=== PATIENT | female | born 1935 | race Caucasian/White ===

== ENCOUNTER → 2016-08-17 | Outpatient (REF) | payer MEDICARE, OTHER | LOC: M LAB REF 16:56 | PROVIDERS: ATTEND Physician Assistant | DX: N39.0 Urinary tract infection, site not specified (principal) ==

== ENCOUNTER → 2016-11-07 | Outpatient (REF) | payer MEDICARE, OTHER | LOC: M LAB REF 10:38 | PROVIDERS: ATTEND Physician Assistant | DX: R30.0 Dysuria (principal) ==

== ENCOUNTER → 2017-04-15 | Outpatient (REF) | payer MEDICARE, OTHER | LOC: M LAB REF 17:59 | DX: R30.0 Dysuria (principal) | CPT/HCPCS: 87186 ==

== ENCOUNTER → 2017-06-25 | Outpatient (CLI) | payer MEDICARE, OTHER | LOC: M WUC 10:02 | DX: R07.9 Chest pain, unspecified (principal) | CPT/HCPCS: 71046 ==

== ENCOUNTER → 2017-10-07 | Outpatient (REF) | payer MEDICARE, OTHER | LOC: M LAB REF 10:55 | DX: R30.0 Dysuria (principal) | CPT/HCPCS: 87086 ==

== ENCOUNTER → 2017-12-28 | Outpatient (REF) | payer MEDICARE, OTHER | LOC: M LAB REF 11:54 | DX: N39.0 Urinary tract infection, site not specified (principal) | CPT/HCPCS: 87186 ==

== ENCOUNTER → 2018-10-18 | Outpatient (CLI) | payer MEDICARE, OTHER ==
--- NOTE | 2018-10-18 09:04 | REPMRS ---
Patient History The patient states she has not had a clinical breast exam in over a year. Patient is postmenopausal. No known family history of cancer. Digital Woman Screen Mammo: October 18, 2018 - Exam #: [id number] Bilateral CC and MLO view(s) were taken. Technologist: Smita Simmons, Technologist Prior study comparison: September 11, 2014, digital woman screen mammo performed at [facility]. FINDINGS: There are scattered fibroglandular densities. There is a moderate amount of residual fibroglandular tissue which is fairly symmetric. There is no interval development of dominant mass, architectural distortion, or grouped microcalcification typical of malignancy. There has been no change in the appearance of the mammogram from the prior studies. 3-D tomosynthesis shows no additional findings. Assessment: BI-RADS/ACR category 1 mammogram. Negative Mammogram. Recommendation Routine screening mammogram of both breasts in 1 year (for women over age 40). This patient's Lifetime Breast Cancer RIsk is estimated at 0.5 %. This mammogram was interpreted with the aid of an FDA-approved computer-aided dectection system. Electronically Signed By: Landon Glynn MD 10/18/18 0904
--- NOTE | 2018-10-22 10:37 | DEXA ---
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 The density of the spine has increased 5.6% since the initial exam on 02/03/2000. The spine density has decreased 6.3% since the most recent exam on 07/17/2013. The density of the left hip has increased 0.9% since the initial exam on 01/03/1999. The density of the left hip has decreased 8.1% since the most recent exam on 07/17/2013. The density of the right hip has decreased 6.9% since the initial exam on 05/18/2006. The density of the right hip has decreased 11.9% since the most recent exam on 07/17/2013. FOLLOW-UP: Recommendation for the next bone density exam: 2 years. KRISTEN
== END ==
LOC: M WHC 07:49
PROVIDERS: ATTEND Internal Medicine
DX: Z12.31 Encounter for screening mammogram for malignant neoplasm of breast (principal); Z78.0 Asymptomatic menopausal state; M81.0 Age-related osteoporosis without current pathological fracture

== ENCOUNTER → 2019-07-11 | Outpatient (CLI) | payer MEDICARE, OTHER ==
--- NOTE | 2019-07-11 10:22 | REP ---
ABDOMINAL SERIES: Supine and erect views of the abdomen demonstrate no evidence of free intraperitoneal air. The stomach is not dilated. There is mild scattered air and fecal material in the distal colon. There are mildly dilated small bowel loops in the mid abdomen bilaterally. Phleboliths are seen in the inferior left pelvis. There are mild degenerative changes of the spine. An accompanying view of the chest demonstrates mild bibasilar fibrotic change which is stable with no acute infiltrate. The heart and mediastinum are unremarkable and unchanged. IMPRESSION: No compelling evidence for obstruction. Mildly dilated small bowel loops in the mid abdomen bilaterally may represent a mild ileus. Electronically Signed by Yonathan Carrillo MD 07/11/2019 11:08 A
[2019-07-11 11:42] LABS: BASO % 0.2 % (0.0-1.0); EOS # 0.1 10^3/uL (0.0-0.5); EOS % 0.8 % (0.0-3.0); HEMOGLOBIN 11.9 g/dl (12.0-15.5); LYMPH # 1.2 10^3/uL (1.5-5.0); LYMPH % 19.7 % (24.0-44.0); MEAN CORPUSCULAR HEMOGLOBIN 32.9 pg (27.0-33.0); MEAN CORPUSCULAR HGB CONC 33.1 g/dl (32.0-36.5); MEAN CORPUSCULAR VOLUME 99.4 fl (80.0-96.0); MONO # 0.5 10^3/uL (0.0-0.8); MONO % 8.2 % (0.0-5.0); NEUTROPHILS # 4.4 10^3/uL (1.5-8.5); NEUTROPHILS % 70.8 % (36.0-66.0); PLATELET COUNT, AUTOMATED 156 10^3/uL (150-450); RED BLOOD COUNT 3.62 10^6/uL (4.00-5.40); WHITE BLOOD COUNT 6.2 10^3/uL (4.0-10.0)
[2019-07-11 12:48] LABS: ALBUMIN 2.9 GM/DL (3.2-5.2); BILIRUBIN,TOTAL 0.7 MG/DL (0.2-1.0); CALCIUM LEVEL 8.8 MG/DL (8.8-10.2); CREATININE FOR GFR 0.98 MG/DL (0.55-1.30); GLOMERULAR FILTRATION RATE 57.7 (>32); POTASSIUM SERUM 3.5 MEQ/L (3.5-5.1); TOTAL PROTEIN 8.4 GM/DL (6.4-8.2)
== END ==
LOC: M WUC 09:08
PROVIDERS: ATTEND Nurse Practitioner Family
DX: R10.84 Generalized abdominal pain (principal); R11.2 Nausea with vomiting, unspecified; R19.7 Diarrhea, unspecified

== ENCOUNTER → 2020-11-08 | Outpatient (CLI) | payer MEDICARE, OTHER ==
--- NOTE | 2020-11-08 09:25 | DEXAMM ---
INDICATION: AGE REL OSTEOPOROSIS W/O FX/M81.0. COMPARISON: 10/18/2018 as well as other prior exams. TECHNIQUE: Bone density was measured using dual-energy x-ray absorptiometry (DEXA). FINDINGS: AP SPINE L1-L4 BMD 0.828 g/cm2 Young Adult T-Score -3.0 Age Matched Z-Score -1.0. LT FEMUR, TOTAL BMD 0.662 g/cm2 Young Adult T-Score -2.7 Age Matched Z-Score -0.5. LT NECK BMD 0.602 g/cm2 Young Adult T-Score -3.1 Age Matched Z-Score -0.8. RT FEMUR, TOTAL BMD 0.664 g/cm2 Young Adult T-Score -2.7 Age Matched Z-Score -0.4. RT NECK BMD 0.612 g/cm2 Young Adult T-Score -3.1 Age Matched Z-Score -0.7. IMPRESSION: There is osteoporosis of the spine. There is osteoporosis of the left hip. There is osteoporosis of the right hip. The density of the spine has increased 5.2% since the initial exam on 02/03/2000. The density of the spine decreased 0.4% since most recent exam on 10/18/2018. The density of the left hip has decreased 4.7% since initial exam on 01/03/1999. The density of the left hip has decreased 5.6% since most recent exam on 10/18/2018. The density of the right hip has decreased 11.3% since the initial exam on 05/18/2006. The density of the right hip has decreased 4.7% since the most recent exam on 10/18/2018. FOLLOW-UP: Recommendation for the next bone density exam: 2 years. <Electronically signed by Yonathan Carrillo > 11/08/20 0921
--- NOTE | 2020-11-08 11:29 | REPMRS ---
Patient History The patient states she has not had a clinical breast exam in over a year. Patient is postmenopausal. No known family history of cancer. No Hormone Replacement Therapy Patient states no breast complaints today. Patient has signed MRS History Sheet. Digital Woman Screen Mammo: November 08, 2020 - Exam #: [id number] Bilateral CC and MLO view(s) were taken. Technologist: Caron Desai, Elevator Erector Prior study comparison: October 18, 2018, bilateral digital woman screen mammo performed at [facility]. September 11, 2014, digital woman screen mammo performed at [facility]. FINDINGS: The breast tissue is heterogeneously dense. This may lower the sensitivity of mammography. Screening. Digital screening (2D) mammography was performed bilaterally in the CC and MLO projections. Additionally, breast tomosynthesis (3D mammography) was performed bilaterally in the CC and MLO projections. Todays exam was compared to the prior exam/exams. By history, the patient has no complaints of a palpable breast abnormality or other significant breast complaints. The breasts are unchanged in size and shape. There are no stacey-soft tissue densities or spiculated masses. There is no internal architectural distortion. Once again, stable benign appearing calcifications are seen.There are no suspicious stacey-calcific clusters. Skin thickening or nipple retraction is not present. The Volpara volumetric breast density category is C, the breasts are heterogenously dense which may obscure small masses. IMPRESSION: BI-RADS Category 2- Benign Findings. There is no evidence of malignant alteration of the breasts. Followup examination recommended in one year. This mammogram was read with the assistance of [facility] [employer],an FDA approved computer aided detection system for mammography. The lifetime Tyrer-Cuzick score is NA due to the patient's age. Negative x-ray reports should not delay surgical consultation if a dominant or clinically suspicious mass is present. Not all breast cancers can be identified by mammography. Therefore, we recommend that you continue to perform regular breast self-examination and physical examination and then promptly contact your physician of any concerns or changes. Adenosis and dense breasts may obscure an underlying neoplasm. No significant changes when compared with prior studies. Assessment: BI-RADS/ACR category 2 mammogram. Benign Findings. Recommendation Routine screening mammogram of both breasts in 1 year. Electronically Signed By: Clay Ray MD 11/08/20 6599
== END ==
LOC: M WHC 08:15
PROVIDERS: ATTEND Internal Medicine
DX: Z12.31 Encounter for screening mammogram for malignant neoplasm of breast (principal); M81.0 Age-related osteoporosis without current pathological fracture

== ENCOUNTER → 2021-09-05 | Outpatient (CLI) | payer MEDICARE, OTHER | LOC: M WUC 09:26 | PROVIDERS: ATTEND Internal Medicine | DX: I50.9 Heart failure, unspecified (principal); J91.8 Pleural effusion in other conditions classified elsewhere; R06.02 Shortness of breath ==

== ENCOUNTER → 2022-03-02 | Outpatient (CLI) | payer MEDICARE, OTHER ==
[2022-03-02 12:59] LABS: CALCIUM LEVEL 9.4 MG/DL (8.3-10.6); CREATININE FOR GFR 1.14 MG/DL (0.55-1.30); GLOMERULAR FILTRATION RATE 48.1 (>32); POTASSIUM SERUM 4.8 MMOL/L (3.5-5.1)
== END ==
LOC: M LAB 11:32
PROVIDERS: ATTEND Physician Assistant
DX: I50.31 Acute diastolic (congestive) heart failure (principal)

== ENCOUNTER → 2022-03-31 | Outpatient (CLI) | payer MEDICARE, OTHER ==
[2022-03-31 16:33] LABS: THYROID STIMULATING HORMONE 8.971 uIU/ML (0.55-4.78)
[2022-03-31 16:35] LABS: HEMATOCRIT 34.6 % (36.0-47.0); HEMOGLOBIN 11.4 g/dl (12.0-15.5); MEAN CORPUSCULAR HEMOGLOBIN 32.6 pg (27.0-33.0); MEAN CORPUSCULAR HGB CONC 32.9 g/dl (32.0-36.5); MEAN CORPUSCULAR VOLUME 98.9 fl (80.0-96.0); PLATELET COUNT, AUTOMATED 211 10^3/uL (150-450); WHITE BLOOD COUNT 5.3 10^3/uL (4.0-10.0)
[2022-03-31 16:58] LABS: ALBUMIN 3.1 G/DL (3.2-5.2); BILIRUBIN,TOTAL 0.6 MG/DL (0.3-1.2); CALCIUM LEVEL 10.2 MG/DL (8.3-10.6); CHOLESTEROL RISK RATIO 2.95 (<5); CREATININE FOR GFR 1.5 MG/DL (0.55-1.30); GLOMERULAR FILTRATION RATE 35.1 (>32); HDL CHOLESTEROL 38.3 MG/DL (>40); LDL CHOLESTEROL 45.1 MG/DL (<100); POTASSIUM SERUM 4.1 MMOL/L (3.5-5.1); TOTAL PROTEIN 8.9 G/DL (5.7-8.2)
== END ==
LOC: M WUC 10:56
PROVIDERS: ATTEND Internal Medicine
DX: E78.5 Hyperlipidemia, unspecified (principal); E03.9 Hypothyroidism, unspecified; I50.9 Heart failure, unspecified

== ENCOUNTER → 2022-05-25 | Outpatient (CLI) | payer MEDICARE, OTHER | LOC: M CARPUL 08:20 | PROVIDERS: ATTEND Physician Assistant | DX: R06.02 Shortness of breath (principal); I50.31 Acute diastolic (congestive) heart failure; I08.3 Combined rheumatic disorders of mitral, aortic and tricuspid valves; I27.20 Pulmonary hypertension, unspecified ==

== ENCOUNTER → 2022-09-22 | Outpatient (CLI) | payer MEDICARE, OTHER ==
[2022-09-22 16:32] LABS: HEMATOCRIT 30.4 % (36.0-47.0); HEMOGLOBIN 9.7 g/dl (12.0-15.5); MEAN CORPUSCULAR HEMOGLOBIN 32.1 pg (27.0-33.0); MEAN CORPUSCULAR HGB CONC 31.9 g/dl (32.0-36.5); MEAN CORPUSCULAR VOLUME 100.7 fl (80.0-96.0); PLATELET COUNT, AUTOMATED 293 10^3/uL (150-450); RED BLOOD COUNT 3.02 10^6/uL (4.00-5.40); WHITE BLOOD COUNT 5.1 10^3/uL (4.0-10.0)
[2022-09-22 17:06] LABS: CREATININE FOR GFR 1.01 MG/DL (0.55-1.30); GLOMERULAR FILTRATION RATE 55.2 (>32); POTASSIUM SERUM 3.6 MMOL/L (3.5-5.1)
== END ==
LOC: M WUC 11:47
PROVIDERS: ATTEND Internal Medicine Cardiovascular Disease
DX: I48.0 Paroxysmal atrial fibrillation (principal); D50.9 Iron deficiency anemia, unspecified; I11.0 Hypertensive heart disease with heart failure

== ENCOUNTER → 2022-09-27 | Outpatient (CLI) | payer MEDICARE, OTHER ==
[2022-09-27 12:19] LABS: HEMATOCRIT 30.4 % (36.0-47.0); HEMOGLOBIN 9.8 g/dl (12.0-15.5); MEAN CORPUSCULAR HEMOGLOBIN 32.5 pg (27.0-33.0); MEAN CORPUSCULAR HGB CONC 32.2 g/dl (32.0-36.5); MEAN CORPUSCULAR VOLUME 100.7 fl (80.0-96.0); PLATELET COUNT, AUTOMATED 277 10^3/uL (150-450); RED BLOOD COUNT 3.02 10^6/uL (4.00-5.40); WHITE BLOOD COUNT 5.6 10^3/uL (4.0-10.0)
[2022-09-27 12:41] LABS: ALBUMIN 2.7 G/DL (3.2-5.2); BILIRUBIN,TOTAL 0.5 MG/DL (0.3-1.2); CALCIUM LEVEL 9.6 MG/DL (8.3-10.6); CREATININE FOR GFR 1.08 MG/DL (0.55-1.30); GLOMERULAR FILTRATION RATE 51.1 (>32); POTASSIUM SERUM 4.5 MMOL/L (3.5-5.1); TOTAL PROTEIN 9.1 G/DL (5.7-8.2)
[2022-09-27 12:42] LABS: THYROID STIMULATING HORMONE 12.63 uIU/ML (0.55-4.78)
== END ==
LOC: M WUC 10:13
PROVIDERS: ATTEND Internal Medicine
DX: E78.5 Hyperlipidemia, unspecified (principal); E03.9 Hypothyroidism, unspecified; I48.91 Unspecified atrial fibrillation; I50.9 Heart failure, unspecified

== ENCOUNTER 2022-11-02 06:44 | Observation (INO) | payer MEDICARE, OTHER ==
[~2022-11-02] VITALS: Ht 157.5 cm; Wt 52.5 kg
[2022-11-02] MEDS ORDERED: ELIQ2.5T PO (07:49)
[2022-11-02] MEDS ORDERED: SYNT88TA2 PO (07:50)
[2022-11-02] MEDS ORDERED: LIPI20TA PO (07:50)
[2022-11-02 07:58] LABS: BASO % 0.5 % (0.0-1.0); EOS # 0.1 10^3/uL (0.0-0.5); EOS % 3.3 % (0.0-3.0); HEMATOCRIT 35.2 % (36.0-47.0); HEMOGLOBIN 11.5 g/dl (12.0-15.5); LYMPH # 1.2 10^3/uL (1.5-5.0); LYMPH % 28.3 % (24.0-44.0); MEAN CORPUSCULAR HEMOGLOBIN 32.9 pg (27.0-33.0); MEAN CORPUSCULAR HGB CONC 32.7 g/dl (32.0-36.5); MEAN CORPUSCULAR VOLUME 100.6 fl (80.0-96.0); MONO # 0.5 10^3/uL (0.0-0.8); MONO % 12.2 % (2.0-8.0); NEUTROPHILS # 2.4 10^3/uL (1.5-8.5); NEUTROPHILS % 55.2 % (36.0-66.0); PLATELET COUNT, AUTOMATED 179 10^3/uL (150-450); WHITE BLOOD COUNT 4.3 10^3/uL (4.0-10.0)
[2022-11-02] MEDS ORDERED: TORS20TA2 PO ×2 (07:58→08:13)
[2022-11-02] MEDS ORDERED: TOPR25TA PO (07:58)
[2022-11-02] MEDS ORDERED: POTA-164 PO (07:58)
[2022-11-02] MEDS ORDERED: PANT20TA6 PO (08:04)
[2022-11-02 08:05] LABS: CK-MB VALUE MASS 1.6 NG/ML (<3.6)
[2022-11-02 08:07] LABS: BLOOD UREA NITROGEN 48 MG/DL (9-23); CALCIUM LEVEL 12.7 MG/DL (8.3-10.6); CARBON DIOXIDE LEVEL 30 MMOL/L (20-31); CHLORIDE LEVEL 99 MMOL/L (98-107); CREATININE FOR GFR 0.89 MG/DL (0.55-1.30); GLOMERULAR FILTRATION RATE > 60.0 (>32); GLUCOSE, FASTING 92 MG/DL (74-106); MAGNESIUM LEVEL 2.2 MG/DL (1.8-2.4); POTASSIUM SERUM 3.9 MMOL/L (3.5-5.1); SODIUM LEVEL 137 MMOL/L (136-145)
[2022-11-02 08:09] LABS: THYROID STIMULATING HORMONE 8.761 uIU/ML (0.55-4.78)
[2022-11-02 08:10] LABS: FREE T4 1.09 NG/DL (0.89-1.76)
[2022-11-02 08:11] LABS: INR 1.21; PROTHROMBIN TIME 14.9 SECONDS (12.5-14.5)
[2022-11-02 08:12] LABS: CPK CREATINE PHOSPHOKINASE 28 U/L (34-145); MB/CK RELATIVE INDEX 5.71 (< OR =4); PARTIAL THROMBOPLASTIN TIME 30.9 SECONDS (24.8-34.2)
[2022-11-02 08:13] LABS: RSV AMPLIFICATION NEGATIVE (NEGATIVE)
[2022-11-02] MEDS ORDERED: ACETAMINOPHEN 500 MG TAB PO ONE (10:05)
[2022-11-02 10:35] LABS: ALBUMIN 2.5 G/DL (3.2-5.2)
[2022-11-02] MEDS ORDERED: NS 250 ML IV SCH (11:30)
[2022-11-02 11:37] LABS: CK-MB VALUE MASS 1.7 NG/ML (<3.6)
[2022-11-02 11:45] LABS: MB/CK RELATIVE INDEX 5.86 (< OR =4)
[2022-11-02] MEDS ORDERED: MED REC IN PROGRESS XX SCH (11:55)
[2022-11-02] MEDS ORDERED: MED REC CURRENTLY UNOBTAINABLE XX SCH (12:05)
[2022-11-02] MEDS ORDERED: PANT40TA29 PO (12:30)
[2022-11-02] MEDS ORDERED: HOME MED LIST COMPLETE! XX SCH (12:35)
[2022-11-02] MEDS: MIDODRINE 2.5 MG TAB PO SCH ×2 (13:29→15:33)
[2022-11-02 14:05] LABS: FOLATE > 24.00 NG/ML (>5.4); VITAMIN B12 LEVEL 1067 PG/ML (211-911)
[2022-11-02 15:07] VITALS: BP 104/60; TEMP 97.6; O2SAT 96
[2022-11-02] MEDS: LEVOTHYROXINE 88MCG TABLET (0.088 MG) PO SCH (18:38)
[2022-11-02 19:58] VITALS: BP 90/54; TEMP 98.4; O2SAT 95
[2022-11-02] MEDS: APIXABAN 2.5 MG TAB (ELIQUIS) PO SCH (20:15)
[2022-11-02] MEDS: PANTOPRAZOLE 40MG TAB (PROTONIX) PO SCH (20:15)
[2022-11-02] MEDS: ACETAMINOPHEN TAB 650MG DOSE (2X325MG) PO PRN (20:16)
[2022-11-02] MEDS: ATORVASTATIN 20 MG TAB PO SCH (20:16)
[2022-11-03] VITALS (8 sets, daily range): BP systolic 89–102; BP diastolic 53–58; TEMP 97.4–97.9; O2SAT 93–99
[2022-11-03 06:13] LABS: HEMATOCRIT 31.6 % (36.0-47.0); HEMOGLOBIN 10.2 g/dl (12.0-15.5); MEAN CORPUSCULAR HEMOGLOBIN 32.2 pg (27.0-33.0); MEAN CORPUSCULAR HGB CONC 32.3 g/dl (32.0-36.5); MEAN CORPUSCULAR VOLUME 99.7 fl (80.0-96.0); PLATELET COUNT, AUTOMATED 166 10^3/uL (150-450); RED BLOOD COUNT 3.17 10^6/uL (4.00-5.40); WHITE BLOOD COUNT 4.8 10^3/uL (4.0-10.0)
[2022-11-03 06:43] LABS: CORTISOL AM 20.5 UG/DL (4.3-22.4)
[2022-11-03 06:46] LABS: BLOOD UREA NITROGEN 39 MG/DL (9-23); CALCIUM LEVEL 11.9 MG/DL (8.3-10.6); CARBON DIOXIDE LEVEL 31 MMOL/L (20-31); CHLORIDE LEVEL 102 MMOL/L (98-107); CREATININE FOR GFR 0.91 MG/DL (0.55-1.30); GLOMERULAR FILTRATION RATE > 60.0 (>32); GLUCOSE, FASTING 88 MG/DL (74-106); POTASSIUM SERUM 3.5 MMOL/L (3.5-5.1); SODIUM LEVEL 138 MMOL/L (136-145)
[2022-11-03 06:52] LABS: PROCALCITONIN 0.09 ng/ml
[2022-11-03] MEDS ORDERED: POTASSIUM CHLORIDE 10MEQ SR TABLET PO ONE (08:00)
[2022-11-03] MEDS: MIDODRINE 5 MG TAB PO SCH ×3 (08:12→16:07)
[2022-11-03] MEDS: APIXABAN 2.5 MG TAB (ELIQUIS) PO SCH ×2 (08:12→20:35)
[2022-11-03] MEDS: METOPROLOL SUCC *XL* 12.5MG PER 1/2 TAB (TopROL *XL*) PO SCH (10:28)
[2022-11-03] MEDS: ACETAMINOPHEN TAB 650MG DOSE (2X325MG) PO PRN ×2 (11:46→19:12)
[2022-11-03] MEDS ORDERED: TORSEMIDE 20 MG TAB PO SCH (14:00)
[2022-11-03] MEDS ORDERED: TORSEMIDE 10 MG TABLET PO SCH (14:00)
[2022-11-03] MEDS: LEVOTHYROXINE 88MCG TABLET (0.088 MG) PO SCH (18:09)
[2022-11-03] MEDS: ATORVASTATIN 20 MG TAB PO SCH (20:35)
[2022-11-03] MEDS: PANTOPRAZOLE 40MG TAB (PROTONIX) PO SCH (20:35)
[2022-11-03] MEDS ORDERED: MOM 30ML SUSPENSION UDC PO PRN (22:25)
[2022-11-03] MEDS ORDERED: DOCUSATE SOD LIQ 100MG/10ML UDC GT PRN (22:25)
[2022-11-04] VITALS: BP 101/59; TEMP 97.6; O2SAT 93
[2022-11-04 04:00] VITALS: BP 96/53; TEMP 98.2; O2SAT 92
[2022-11-04 05:11] LABS: HEMATOCRIT 29.5 % (36.0-47.0); HEMOGLOBIN 9.6 g/dl (12.0-15.5); MEAN CORPUSCULAR HEMOGLOBIN 32.8 pg (27.0-33.0); MEAN CORPUSCULAR HGB CONC 32.5 g/dl (32.0-36.5); MEAN CORPUSCULAR VOLUME 100.7 fl (80.0-96.0); PLATELET COUNT, AUTOMATED 161 10^3/uL (150-450); RED BLOOD COUNT 2.93 10^6/uL (4.00-5.40); WHITE BLOOD COUNT 4.5 10^3/uL (4.0-10.0)
[2022-11-04 05:37] LABS: CALCIUM LEVEL 11.6 MG/DL (8.3-10.6); CREATININE FOR GFR 1.11 MG/DL (0.55-1.30); GLOMERULAR FILTRATION RATE 49.5 (>32); POTASSIUM SERUM 3.9 MMOL/L (3.5-5.1)
[2022-11-04 08:00] VITALS: BP 95/51; TEMP 97.1; O2SAT 97
[2022-11-04 08:44] VITALS: BP 95/51
[2022-11-04] MEDS: METOPROLOL SUCC *XL* 12.5MG PER 1/2 TAB (TopROL *XL*) PO SCH (08:44)
[2022-11-04] MEDS: MIDODRINE 5 MG TAB PO SCH ×2 (09:07→13:01)
[2022-11-04] MEDS: ACETAMINOPHEN TAB 650MG DOSE (2X325MG) PO PRN (09:07)
[2022-11-04] MEDS: APIXABAN 2.5 MG TAB (ELIQUIS) PO SCH (09:07)
[2022-11-04] MEDS ORDERED: MIRALAX *UNIT DOSE* 17GM PACKET PO SCH (11:40)
[2022-11-04] MEDS ORDERED: TORS10TA3 PO ×2 (11:43→11:58)
[2022-11-04] MEDS ORDERED: METO1TAB32 PO ×3 (11:43→12:35)
[2022-11-04] MEDS ORDERED: MIDO5TA PO ×2 (11:43→11:58)
[2022-11-04] MEDS ORDERED: MIRA3350 PO ×2 (11:50→12:15)
== END 2022-11-04 14:43 | disposition home health service (06) ==
LOC: EDBD 06:44 → M ED 06:44 → INTOOBSV 12:11 → M ED INP 12:11 → ENRESERV 14:22 → M ICU 15:07
PROVIDERS: ADMIT Internal Medicine; ATTEND Internal Medicine
DX: R55 Syncope and collapse (principal); I49.5 Sick sinus syndrome; I48.91 Unspecified atrial fibrillation; Z95.810 Presence of automatic (implantable) cardiac defibrillator; Z79.01 Long term (current) use of anticoagulants; I50.30 Unspecified diastolic (congestive) heart failure; E78.5 Hyperlipidemia, unspecified; E03.9 Hypothyroidism, unspecified; K21.9 Gastro-esophageal reflux disease without esophagitis; J90 Pleural effusion, not elsewhere classified; K59.00 Constipation, unspecified; D72.10 Eosinophilia, unspecified; R79.89 Other specified abnormal findings of blood chemistry; D64.9 Anemia, unspecified; Z79.899 Other long term (current) drug therapy
CPT/HCPCS: 36415; 70450; 71045; 72125; 80048; 80503; 82040; 82533; 82550; 82553; 82607; 82746; 83735; 83880; 84145; 84439; 84443; 84484; 85025; 85027; 85610; 85730; 87040; 87486; 87581; 87631; 87633; 87641; 87798; 93005; 93041; 93306; 94760; 96360; 96361; 97161; 97165; 97530; 97535; 99285; G0378

== ENCOUNTER → 2023-02-02 | Outpatient (CLI) | payer MEDICARE, OTHER ==
[~2023-02-02] MED LIST: ELIQ2.5T PO; LIPI20TA PO; METO1TAB32 PO; MIDO5TA PO; MIRA3350 PO; PANT20TA6 PO; PANT40TA29 PO; POTA-164 PO; SYNT88TA2 PO; TOPR25TA PO; TORS10TA3 PO; TORS20TA2 PO
[2023-02-02 14:22] LABS: CREATININE FOR GFR 1.07 MG/DL (0.55-1.30); GLOMERULAR FILTRATION RATE 51.6 (>32); POTASSIUM SERUM 3.6 MMOL/L (3.5-5.1)
== END ==
LOC: M WUC 10:14
PROVIDERS: ATTEND Internal Medicine
DX: I50.9 Heart failure, unspecified (principal); E03.9 Hypothyroidism, unspecified

== ENCOUNTER → 2023-04-06 | Outpatient (CLI) | payer MEDICARE, OTHER ==
[2023-04-06 12:35] LABS: BASO % 0.4 % (0.0-1.0); EOS # 0.1 10^3/uL (0.0-0.5); EOS % 1.8 % (0.0-3.0); HEMATOCRIT 34.3 % (36.0-47.0); HEMOGLOBIN 11.2 g/dl (12.0-15.5); LYMPH # 2.5 10^3/uL (1.5-5.0); LYMPH % 44.5 % (24.0-44.0); MEAN CORPUSCULAR HEMOGLOBIN 33.2 pg (27.0-33.0); MEAN CORPUSCULAR HGB CONC 32.7 g/dl (32.0-36.5); MEAN CORPUSCULAR VOLUME 101.8 fl (80.0-96.0); MONO # 0.7 10^3/uL (0.0-0.8); NEUTROPHILS # 2.3 10^3/uL (1.5-8.5); NEUTROPHILS % 40.1 % (36.0-66.0); PLATELET COUNT, AUTOMATED 238 10^3/uL (150-450); RED BLOOD COUNT 3.37 10^6/uL (4.00-5.40)
[2023-04-06 13:02] LABS: ALBUMIN 2.6 G/DL (3.2-5.2); BILIRUBIN,TOTAL 0.3 MG/DL (0.3-1.2); CALCIUM LEVEL 10.8 MG/DL (8.3-10.6); CHOLESTEROL RISK RATIO 4.5 (<5); CREATININE FOR GFR 1.13 MG/DL (0.55-1.30); GLOMERULAR FILTRATION RATE 48.5 (>32); HDL CHOLESTEROL 36.6 MG/DL (>40); LDL CHOLESTEROL 91.8 MG/DL (<100); NON-HDL-C 128.4 MG/DL; TOTAL PROTEIN 9.6 G/DL (5.7-8.2)
[2023-04-06 13:03] LABS: THYROID STIMULATING HORMONE 8.213 uIU/ML (0.55-4.78)
[2023-04-09 06:45] LABS: WHITE BLOOD COUNT 5.7 10^3/uL (4.0-10.0)
== END ==
LOC: M WUC 09:35
PROVIDERS: ATTEND Internal Medicine
DX: E78.5 Hyperlipidemia, unspecified (principal); E03.9 Hypothyroidism, unspecified; R74.01 Elevation of levels of liver transaminase levels

== ENCOUNTER → 2023-07-30 | Outpatient (REF) | payer MEDICARE, OTHER ==
[2023-07-30 19:17] LABS: HEMATOCRIT 31.8 % (36.0-47.0); HEMOGLOBIN 10.5 g/dl (12.0-15.5); MEAN CORPUSCULAR HEMOGLOBIN 32.9 pg (27.0-33.0); MEAN CORPUSCULAR VOLUME 99.7 fl (80.0-96.0); PLATELET COUNT, AUTOMATED 193 10^3/uL (150-450); RED BLOOD COUNT 3.19 10^6/uL (4.00-5.40); WHITE BLOOD COUNT 4.1 10^3/uL (4.0-10.0)
[2023-07-30 19:29] LABS: CALCIUM LEVEL 10.1 MG/DL (8.3-10.6); CREATININE FOR GFR 1.41 MG/DL (0.55-1.30); GLOMERULAR FILTRATION RATE 37.6 (>32); POTASSIUM SERUM 4.4 MMOL/L (3.5-5.1)
== END ==
LOC: M LABWUC 16:41
PROVIDERS: ATTEND Internal Medicine Cardiovascular Disease
DX: I50.42 Chronic combined systolic (congestive) and diastolic (congestive) heart failure (principal); I48.0 Paroxysmal atrial fibrillation

== ENCOUNTER → 2023-10-07 | Outpatient (REF) | payer MEDICARE, OTHER ==
[~2023-10-07] MED LIST changes: +AMIO200T49; +JARD1TAB; +SYNT100T; +TORS20TA2
[2023-10-07 12:25] LABS: TOTAL VOLUME, URINE 1000 ML
[2023-10-07 12:48] LABS: URINE TOTAL PROTEIN 26.2 MG/DL (0-14)
[2023-10-09 13:57] LABS: PROTEIN CREATININE RATIO 450 mg/g creat (24-184); UPEP CREATININE 60 mg/dL (20-275); UPEP TOTAL PROTEIN 27 mg/dL (5-24)
== END ==
LOC: M ONCM 12:08
PROVIDERS: ATTEND Internal Medicine Hematology & Oncology
DX: C90.00 Multiple myeloma not having achieved remission (principal)

== ENCOUNTER 2023-11-12 16:40 | Emergency (ER) | payer MEDICARE, OTHER ==
[~2023-11-12 16:40] MED LIST changes: +ALLO200T PO; +CYCL1CAP2 PO; +DEXA4TA PO; +ONDA-84 PO; +VALA500T5 PO
== END 2023-11-12 16:47 | disposition expired ==
LOC: M ED 16:40
DX: I46.9 Cardiac arrest, cause unspecified (principal); C90.01 Multiple myeloma in remission; Z86.79 Personal history of other diseases of the circulatory system; Z79.01 Long term (current) use of anticoagulants; Z79.83 Long term (current) use of bisphosphonates; Z79.899 Other long term (current) drug therapy